=== PATIENT | male | born 1960 | race Caucasian/White ===

== ENCOUNTER 2016-07-19 16:03 | Emergency (ER) | payer SELFPAY ==
[~2016-07-19] VITALS: Ht 172.7 cm; Wt 74.8 kg
--- OUTSIDE RECORDS SUMMARY | 2016-07-19 16:30 | External Medical Summary Rpt ---
Author Author , Organization [employer] Address Unknown Phone Unavailable Care Team Providers Care Computer Help Desk Specialist Name Role Phone ABEL NEGRETE, ABEL NEGRETE Unavailable Unavailable ZACHARY-ISABELLE CARRION, Unavailable Unavailable ZACHARY-ISABELLE CARRION [facility] Unavailable [facility] Unavailable Unavailable [facility] CHANDEL PATRICK, CHANDEL Unavailable Unavailable PATRICK [facility] Unavailable Unavailable PHYSICIAN PRA, [facility] PHYSICIAN PRA [facility] Unavailable Unavailable [facility] DANISHA COPPOLA, DANISHA Unavailable Unavailable [facility] Unavailable Unavailable HOSPITA, [facility] JYOTSNA RHO, JYOTSNA Unavailable Unavailable RHO OSCAR ANN, Unavailable Unavailable OSCAR ANN OSCAR ANN, Unavailable Unavailable OSCAR ANN WARREN ELLIOT, WARREN Unavailable Unavailable [facility] Un[facility] Unavailable [facility], [facility] JENNY CEC, JENNY Unavailable Unavailable CEC FANG NAN, FANG Unavailable Unavailable NAN FANG MITCHELL, FANG Unavailable Unavailable [facility]AN [facility] Un[facility]available [facility] Unavailable Unavailable [facility], [facility] SCALF LEI, SCALF LEI Unavailable Unavailable SCALF LEI, SCALF LEI Unavailable [facility] Purpose Continuity of Care Document - 01-13-2013 through 2016 Problems Code Diagnosis DOS Provider Status M549 DORSALGIA 01-05-2016 [facility] E639 NUTRITIONAL 12-30-2015 [facility] DEFICIENCY [facility]IC UNSPECIFIED H579 UNSPECIFIED 12-30-2015 [facility] DISORDER [facility]IN[facility] OF EYE AND ADNEXA Z09 ENC F/U 12-30-2015 [facility] EXAM AFTR CLINIC CMPL TX OTH THAN MALIG NEOPLSM I10 ESSENTIAL 12-29-2015 [facility] HYPERTENSIO PHYS N R0789 OTHER CHEST 12-29-2015 [facility] PAIN N EMERGENCY PHYS R079 CHEST PAIN 12-29-2015 [facility] Z720 TOBACCO USE 12-29-2015 [facility] H[facility]PITA G4700 INSOMNIA 12-25-2015 [facility] UNSPECIFIED [facility] R5383 OTHER 12-25-2015 [facility] FATIGUE [facility]INIC K529 NONINFECTIV 10-23-2015 [facility] GASTROENTER PHYS ITIS & COLITIS UNS R0602 SHORTNESS 10-23-2015 [facility] [place] [facility] R1110 VOMITING 10-23-2015 [facility] UNSPECIFIED N EMERGENCY PHYS R197 DIARRHEA 10-23-2015 [facility] UNSPECIFIED N EMERGENCY PHYS R031 NONSPECIFIC 09-18-2015 [facility] LOW CLINIC BLOOD-PRESS URE READING R109 UNSPECIFIED 09-18-2015 [facility] ABDOMINAL [facility]IC PAIN R112 NAUSEA WITH 09-18-2015 [facility] VOMITING [facility] UNSPECIFIED Z8619 PERSONAL 09-18-2015 [facility] HISTORY OTH CLINIC INFECTIOUS & PARASITIC DZ Z760 ENCOUNTER 08-26-2015 [facility] FOR ISSUE CLINIC OF REPEAT PRESCRIPTIO N M545 LOW BACK 07-31-2015 [facility] PAIN [facility]INIC [id number] UNSPECIFIED 06-17-2015 [facility] FALL [facility] INITIAL HOLDINGS ENCOUNTER T148 OTHER 06-02-2015 [facility] INJURY OF [facility] UNSPECIFIED HOLDINGS BODY REGION D239 OTHER 02-21-2015 [facility] BENIGN NEOPLASM OF SKIN UNSPECIFIED E8020 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 B182 CHRONIC 02-12-2015 [facility] HE[facility] C PHYSICIAN PRA [id number] ABRASION OF 02-03-2015 [facility] RIGHT [facility]INIC UPPER ARM INITIAL ENCOUNTER K828 OTHER 01-16-2015 [facility] [place] SPEC[facility]IED [facility] DISEASES OF GALLBLADDER 4019 UNSPECIFIED 11-08-2014 [facility] ESSENTIAL [facility] HYPERTENSIO HOLDINGS N 7099 UNSPECIFIED 11-08-2014 [facility] DISORDER [facility] OF HOLDINGS SKIN&SUBCUT ANEOUS TISSUE 9142 HAND NO 11-08-2014 [facility] FINGER [facility] ALONE HOLDINGS BLISTER WITHOUT MENTION INF 7906 OTHER 09-16-2014 [facility] ABNORMAL [facility] BLOOD HOLDINGS CHEMISTRY 23051 INJURY OF 08-14-2014 [facility] FACE AND [facility] NECK OTHER AND UNSPECIFIED 81563 OTHER 08-14-2014 [facility] [place] INJURY OF RADIOLOGY OTHER SITES OF TRUNK 9592 INJURY 08-14-2014 [facility] [place] OTHER&UNSPE RADIOLOGY CIFIED SHOULDER&UP PER ARM 7231 CERVICALGIA 02-14-2013 [facility] 7295 PAIN IN 02-14-2013 [place] [facility] TISSUES OF LIMB 4011 ESSENTIAL 01-18-2013 [facility]CHE[facility] HYPERTENSIO N, BENIGN 4610 ACUTE 01-18-2013 [facility] MIT[facility] MAXILLARY SINUSITIS 36565 OTHER 01-18-2013 [facility] MITCHELL SYMPTOMS INVOLVING HEAD AND NECK Medications Na ND Rx Da Fi Fi Am Da Di Ph RX Ph St me C No te ll ll ou ys ag ar # ys at rm s nt no ma ic us Or Da si cy ia de te s n re d PE 00 12 12 0 59 1 CA 71 HOWARD Ac RM 47 -0 -0 0. RL 78 WV ti ET 25 5- 5- 00 IS 46 LT ve HR 24 20 20 0 LE ON IN [address] YE 1% UG MB S ER LO LY TI M ON IA 00 11 11 0 12 6 CA 71 HU Ac OM 60 -1 -1 00 RL 71 NT ti ET 31 4- 4- .0 IS 40 ER ve HOWARD 58 20 20 00 LE ZI 65 [address] BERRY -Venkat YOUNGBLOOD Y M S C SY RU P AM 65 11 11 0 30 10 CA 71 HU Ac OX 86 -1 -1 0. RL 71 NT ti -C 20 4- 4- 00 IS 38 ER ve LA 50 20 20 0 LE V 22 [address] BERRY 0- UG Y 12 S C 5 MG TA BL ET ME 65 11 11 0 60 30 CA 71 HU Ac LO 86 -1 -1 0. RL 71 NT ti XI 20 4- 4- 00 IS 39 ER ve CA 09 20 20 0 LE M 80 13 [address] BERRY UG Y MG S C TA BL ET 64 03 11 12 30 30 CA 70 AH Ac 67 -0 -0 0. RL 78 ME ti 90 4- 9- 00 IS 02 D ve 94 20 20 0 LE AD 20 [address] Rosa Oneill Immunization Name Date Route CVX Reacti Commen Provid Is Given on t er Refuse d TD ROMAN No VACCIN 2014 PENELOPE E PRSRV FREE 7 YRS OR OLDER FOR IM USE TD ROMAN No VACCIN 2014 PENELOPE E PRSRV FREE 7 YRS OR OLDER FOR IM USE Procedures Procedure [place] [address] [facility] TROPONIN 6 N N QUANTITAT COMMUNTIY COMMUNTIY ALEXIS HOSPITA HOSPITA BLOOD 79035 [facility] COUNT 6 N N COMPLETE COMMUNTIY COMMUNTIY AUTO&AUTO HOSPITA HOSPITA DIFRNTL WBC ECG 44738 [facility] ROUTINE 6 GENARO ANAT ECG EMERGENCY W/LEAST PHYS 12 LDS I&R ONLY GROUND A0425 [facility] MILEAGE 6 JACE MCCORMICK PER CO EMS CO EMS STATUTE MILE RADIOLOGI 46995 [facility] [place] [facility] C 6 RADIOLOGY RHO EXAMINATI ON CHEST SINGLE VIEW FRONTAL AMB A0427 [facility] SERVICE 6 Rosa-JAY JAY Lee-JAY JAY ALS CO EMS CO EMS EMERGENCY TRANSPORT LEVEL 1 COMPREHEN 83637 [facility] SIVE 6 N N METABOLIC COMMUNTIY COMMUNTIY PANEL HOSPITA HOSPITA COMPREHEN 65218 [facility] SIVE 6 [facility]ENN[facility]I [facility]ENN[facility] METABOLIC HOLDINGS HOLDINGS PANEL COLLECTIO 89107 [facility] ROMAN PENELOPE N VENOUS 6 CLINIC BLOOD VENIPUNCT URE BLOOD 35923 [facility] COUNT 6 KENNEDI KENNEDI COMPLETE HOLDINGS HOLDINGS AUTO&AUTO DIFRNTL WBC RADIOLOGI 94802 [facility] [place] [facility] EXAM 6 RADIOLOGY ELLIOT CHEST 2 VIEWS FRONTAL&L ATERAL INJECTION J2550 [facility] SHARMA- 6 [facility]IN[facility] PROMETHAZ INE HCL UP TO 50 MG THERAPEUT 16694 [facility] SHARMA- IC 6 CLINIC SE [place] PROPHYLAC TIC/DX INJECTION SUBQ/IM BLOOD 38805 [facility] COUNT 6 KENNEDI KENNEDI COMPLETE HOLDINGS HOLDINGS AUTO&AUTO DIFRNTL WBC COLLECTIO 63541 [facility] ROMAN PENELOPE N VENOUS 6 CLINIC BLOOD VENIPUNCT URE COMPREHEN 25193 [facility]ADY SIVE 6 KENNEDI KENNEDI METABOLIC HOLDINGS HOLDINGS PANEL COMPREHEN 93145 [facility]Y SIVE 6 KENNEDI KENNEDI METABOLIC HOLDINGS HOLDINGS PANEL COLLECTIO 55737 [facility] ROMAN PENELOPE N VENOUS 6 [place] [address] SCALF LEI SCALF LEI SURG 5 PATHOLOGY GROSS&SOWMYA ROSCOPIC EXAM IM ADM 19716 [facility] NEGRETE PRQ ID 5 CLINIC SUBQ/IM NJXS [address] [place] [address] [facility] VACCINE 5 CLINIC PRSRV FREE 7 [place] [address] [facility] [place] [facility] ABDOMINAL 5 RADIOLOGY RHO REAL TIME W/IMAGE LIMITED CYANOCOBA 29245 [facility] ANTHONY 5 [facility] VITAMIN INC INC B-12 IRON 07383 [facility] BINDING 5 [facility] CAPACITY INC INC COLLECTIO 80820 [facility] N VENOUS 5 MEM [facility]OS[facility] MEM [facility]OS[facility] [place] [address] [facility] FERRITIN 5 [place] [address] [facility] IRON 5 MEM [facility] INC INC INF AGT G0432 [facility] AB DETECT 5 MEM HOS[facility] MEM [facility] EIA TECH INC INC HIV-1&/HI V-2 SCR COMPREHEN 72457 [facility] SIVE 5 [facility] METABOLIC HOLDINGS HOLDINGS PANEL CUL BACT 63336 [facility] XCPT 5 [facility] URINE HOLDINGS HOLDINGS BLOOD/STO OL AEROBIC ISOL COLLECTIO 21206 [facility] ALARCONLER- N VENOUS 5 CLINIC SE [facility] BLOOD VENIPUNCT URE BLOOD 51427 [facility] COUNT 5 [facility] COMPLETE HOLDINGS HOLDINGS AUTO&AUTO DIFRNTL WBC SUSCEPTIB 41320 [facility] LTY STDY 5 [facility] ANTIMICRB HOLDINGS HOLDINGS IAL MICRO/AGA R DILUTJ BLOOD 78468 [facility] COUNT 5 KENNEDI KENNEDI COMPLETE HOLDINGS HOLDINGS AUTO&AUTO DIFRNTL WBC CYANOCOBA 54346 [facility] ANTHONY 5 [facility] VITAMIN HOLDINGS HOLDINGS B-12 LIPID 30494 [facility] PANEL 5 KENN[facility] KENNEDI HOLDINGS HOLDINGS COMPREHEN 91878 LAB [facility] SIVE 5 [facility] [place] [address] [facility] FOLIC 5 [facility]ENN[facility] [place] [address] [facility] CERVICAL 5 RADIOLOGY RHO SPINE W/O CONTRAST MATERIAL CT LUMBAR 00588 [facility] [place] [facility] SPINE 5 RADIOLOGY RHO W/O CONTRAST MATERIAL RADEX 30372 [facility] SHOULDER 5 RADIOLOGY RHO COMPLETE MINIMUM 2 VIEWS INJECTION J1885 OSCAR OSCAR 3 ANN JUAREZ KETOROLAC TROMETHAM INE PER 15 MG THERAPEUT 52765 [facility] OSCAR IC 3 ANN JUAREZ PROPHYLAC TIC/DX INJECTION SUBQ/IM INJECTION J3301 OSCAR OSCAR 3 ANN JUAREZ TRIAMCINO LONE ACETONIDE NOS 10 MG Encounters Encounter Start End Date Code Location Performer Type Date OFFICE 90441 [facility] OUT[facility]EN 6 6 CLINIC T VISIT 15 MINUTES OFFICE 08151 [facility] OUTPATIEN 6 6 CLINIC T VISIT 15 MINUTES [facility] 6 6 N OUTPATIEN COMMUNTIY T HOSPITA EMERGENCY 33877 [facility] 6 6 N DEPARTMEN COMMUNTIY T VISIT HOSPITA HIGH/URGE NT SEVERITY EMERGENCY 79347 [facility] DEPT 6 6 GENARO ANAT VISIT EMERGENCY HIGH PHYS SEVERITY& THREAT FUNCJ OFFICE 73613 [facility] OUTPATIEN 6 6 CLINIC T VISIT 15 MINUTES OFFICE 58146 [facility] NEGRETE OUTPATIEN 6 6 CLINIC T VISIT 15 MINUTES EMERGENCY 74484 [facility] DEPT 6 6 GENARO PATRICK VISIT EMERGENCY HIGH PHYS SEVERITY& THREAT FUNCJ OFFICE 86653 [facility] PIZARRO OUTPATIEN 6 6 CLINIC SE [place] T VISIT 15 MINUTES OFFICE 81663 [facility] NE[facility]TE OUTPATIEN 6 6 CLINIC T VISIT 15 MINUTES OFFICE 68769 [facility] NE[facility]TE OUTPATIEN 6 6 CLINIC T VISIT 15 MINUTES OFFICE 90231 TOMASCHRIS NEGRETE OUTPATIEN 6 6 CLINIC T VISIT 15 MINUTES OFFICE 00818 [facility]RIS NE[facility] OUTPATIEN 6 6 CLINIC T VISIT 15 MINUTES OFFICE 17297 [facility] OUTPATIEN 5 5 REGIONAL CEC T VISIT PHYSICIAN 15 PRA MINUTES OFFICE 81825 [facility] ABEL NEGRETE OUTPATIEN 5 5 CLINIC T VISIT 15 MINUTES [facility] 5 5 [facility] T OFFICE 01686 [facility] OUTPATIEN 5 5 DIGESTIVE CEC T NEW [address] [facility] MY[facility] - 5 5 [facility] OUTPATIEN [facility] T OFFICE 63030 [facility] PIZARRO OUTPATIEN 5 5 CLINIC SE [place] T VISIT 15 MINUTES OFFICE 48703 CELESTINA OSCAR OUTPATIEN 3 3 ANN JUAREZ T VISIT 15 MINUTES OFFICE 44931 [facility] HEADLEY OUTPATIEN 3 3 STEPHEN MITCHELL T VISIT 15 MINUTES
--- OUTSIDE RECORDS SUMMARY | 2016-07-19 16:30 | External Medical Summary Rpt ---
Author Author , Organization [employer] Address Unknown Phone Unavailable Care Team Providers Care Research Microbiologist Name Role Phone ABEL NEGRETE, ABEL NEGRETE Unavailable Unavailable ZACHARY-ISABELLE CARRION, Unavailable Unavailable ZACHARY-ISABELLE CARRION [facility], Un[facility] Unavailable [facility], Unavailable [facility]available [facility] CHANDEL PATRICK, CHANDEL Unavailable Unavailable PATRICK [facility] Unavailable Unavailable PHYSICIAN PRA, [facility] PHYSICIAN PRA [facility], Unavailable Unavailable [facility] DANISHA COPPOLA, DANISHA Unavailable Unavailable [facility] Unavailable Unavailable HOSPITA, [facility] Unavailable [facility]available EMS, [facility] Unavailable Unavailable EMS, [facility] JYOTSNA RHO, JYOTSNA Unavailable Unavailable RHO [...] N EMERGENCY PHYS R079 CHEST PAIN 12-29-2015 [facility] EMS Z720 TOBACCO USE 12-29-2015 [facility] G4700 INSOMNIA 12-25-2015 [facility] UNSPECIFIED [facility]INIC [...] M545 LOW BACK 07-31-2015 [facility] PAIN [facility]INIC [id number] UNSPECIFIED 06-17-2015 [facility] INITIAL HOLDINGS ENCOUNTER T148 OTHER 06-02-2015 [facility] INJURY OF [place]ENNEDI UNSPECIFIED HOLDINGS BODY REGION D239 OTHER 02-21-2015 [facility] BENIGN NEOPLASM OF SKIN UNSPECIFIED E8020 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 B182 CHRONIC 02-12-2015 [facility] HE[facility]IS C PHYSICIAN PRA E84195O ABRASION OF 02-03-2015 [facility] RIGHT [facility]INIC UPPER [...] LAB [facility] ABNORMAL [facility] BLOOD HOLDINGS CHEMISTRY 85940 INJURY OF 08-14-2014 [facility] FACE AND [facility] NECK OTHER AND UNSPECIFIED 78891 OTHER 08-14-2014 [facility] [place] INJURY OF RADIOLOGY OTHER SITES OF TRUNK 9592 INJURY 08-14-2014 [facility] [place] OTHER&UNSPE RADIOLOGY CIFIED SHOULDER&UP PER ARM 7231 CERVICALGIA 02-14-2013 [facility] 7295 PAIN IN 02-14-2013 [facility] TISSUES OF LIMB 4011 ESSENTIAL 01-18-2013 [facility] HYPERTENSIO N, BENIGN 4610 ACUTE 01-18-2013 [facility] MAXILLARY SINUSITIS 44478 OTHER 01-18-2013 [facility]CHE[facility] SYMPTOMS INVOLVING HEAD [...] RM 47 -0 -0 0. RL 78 [place] ti ET 25 5- 5- 00 IS 46 LT ve HR 24 20 20 0 LE ON IN [address] YE 1% UG MB S ER LO LY TI M ON MN 00 11 11 0 12 6 CA [...] DOS [place] [address] [facility] TROPONIN 6 N N QUANTITAT COMMUNTIY COMMUNTIY ALEXIS HOSPITA HOSPITA BLOOD 60130 [facility] COUNT 6 N N COMPLETE COMMUNTIY COMMUNTIY AUTO&AUTO HOSPITA HOSPITA DIFRNTL WBC ECG 18921 [facility] ROUTINE 6 GENARO ANAT ECG EMERGENCY W/LEAST PHYS 12 LDS I&R ONLY GROUND A0425 [facility] MILEAGE 6 JACE MCCORMICK PER CO EMS CO EMS STATUTE MILE RADIOLOGI 87905 [facility] C 6 RADIOLOGY RHO EXAMINATI ON CHEST SINGLE VIEW FRONTAL AMB A0427 [facility] SERVICE 6 Rosa-JAY JAY Lee-JAY JAY ALS CO EMS CO EMS EMERGENCY TRANSPORT LEVEL 1 COMPREHEN 17553 [facility] SIVE 6 N N METABOLIC COMMUNTIY COMMUNTIY PANEL HOSPITA HOSPITA COMPREHEN 80744 [facility] SIVE 6 [facility]ENN[facility] METABOLIC HOLDINGS HOLDINGS PANEL COLLECTIO 99423 [facility] ROMAN PENELOPE N VENOUS 6 CLINIC BLOOD VENIPUNCT URE BLOOD 36355 [facility] COUNT 6 [facility]ENN[facility] [place]ENN[facility] COMPLETE HOLDINGS HOLDINGS AUTO&AUTO DIFRNTL WBC RADIOLOGI 02194 [facility] [place] [facility] EXAM 6 RADIOLOGY ELLIOT CHEST 2 VIEWS FRONTAL&L ATERAL INJECTION J2550 [facility] SHARMA- 6 CLINIC SE [facility] PROMETHAZ INE HCL UP TO 50 MG THERAPEUT 45321 [facility] SHARMA- IC 6 CLINIC SE [place] PROPHYLAC TIC/DX INJECTION SUBQ/IM BLOOD 29853 [facility] COUNT 6 KENNEDI KENNEDI COMPLETE HOLDINGS HOLDINGS AUTO&AUTO DIFRNTL WBC COLLECTIO 29011 [facility] ROMAN PENELOPE N VENOUS 6 CLINIC BLOOD VENIPUNCT URE COMPREHEN 29527 [facility] SIVE 6 KENNEDI [facility] METABOLIC HOLDINGS HOLDINGS PANEL COMPREHEN 16541 [facility] SIVE 6 KENNEDI [facility]ENN[facility] METABOLIC HOLDINGS HOLDINGS PANEL COLLECTIO 81782 [facility] ROMAN PENELOPE N VENOUS 6 [place] [address] [facility] SCALF LEI SURG 5 PATHOLOGY GROSS&SOWMYA ROSCOPIC EXAM IM ADM 26742 [facility] NEGRETE PRQ ID 5 CLINIC SUBQ/IM NJXS [address] [place] [address] [facility] VACCINE 5 CLINIC PRSRV FREE 7 [place] [address] [facility] [place] [facility] ABDOMINAL 5 RADIOLOGY RHO REAL TIME W/IMAGE LIMITED CYANOCOBA 21587 [facility] ANTHONY 5 [facility]OS[facility] VITAMIN INC INC B-12 IRON 45835 [facility] BINDING 5 [facility] H[facility]OS[facility] CAPACITY INC INC COLLECTIO 76145 [facility] BRUNNER N VENOUS 5 MEM [facility] MEM HOS[facility] [place] [address] [facility] FERRITIN 5 [place] [address] [facility] IRON 5 MEM HOS[facility]OS[facility] INC INC INF AGT G0432 [facility] BRUNNER AB DETECT 5 MEM HOSP MEM HOSP EIA TECH INC INC HIV-1&/HI V-2 SCR COMPREHEN 93072 [facility] SIVE 5 [facility] METABOLIC HOLDINGS HOLDINGS PANEL CUL BACT 35237 [facility]Y XCPT 5 [facility] URINE HOLDINGS HOLDINGS BLOOD/STO OL AEROBIC ISOL COLLECTIO 48109 [facility] ALARCONLER- N VENOUS 5 CLINIC SE [place] BLOOD VENIPUNCT URE BLOOD 00118 [facility] COUNT 5 [facility] COMPLETE HOLDINGS HOLDINGS AUTO&AUTO DIFRNTL WBC SUSCEPTIB 01540 [facility] LTY STDY 5 [facility] ANTIMICRB HOLDINGS HOLDINGS IAL MICRO/AGA R DILUTJ BLOOD 86586 [facility] COUNT 5 KENN[facility] KENNEDI COMPLETE HOLDINGS HOLDINGS AUTO&AUTO DIFRNTL WBC CYANOCOBA 72230 [facility] ANTHONY 5 [facility] VITAMIN HOLDINGS HOLDINGS B-12 LIPID 89733 [facility] PANEL 5 KENNEDI KENNEDI HOLDINGS HOLDINGS COMPREHEN 83505 [facility] SIVE 5 [facility] [place] [address] LAB [facility] FOLIC 5 KENNEDI [place] [address] [facility] CERVICAL 5 RADIOLOGY RHO SPINE W/O CONTRAST MATERIAL CT LUMBAR 76656 [facility] SPINE 5 RADIOLOGY RHO W/O CONTRAST MATERIAL RADEX 15707 [facility] SHOULDER 5 RADIOLOGY RHO COMPLETE MINIMUM 2 VIEWS INJECTION J1885 OSCAR OSCAR 3 ANN JUAREZ KETOROLAC TROMETHAM INE PER 15 MG THERAPEUT 36117 OSCAR OSCAR IC 3 ANN JUAREZ PROPHYLAC TIC/DX INJECTION SUBQ/IM INJECTION J3301 OSACR OSCAR 3 ANN JUAREZ TRIAMCINO LONE ACETONIDE NOS 10 MG Encounters Encounter Start End Date Code Location Performer Type Date OFFICE 47242 [facility] OUTPATIEN 6 6 CLINIC T VISIT 15 MINUTES OFFICE 15982 [facility] NE[facility]TE OUTPATIEN 6 6 CLINIC T VISIT 15 MINUTES [facility] 6 6 N OUTPATIEN COMMUNTIY T HOSPITA EMERGENCY 79941 [facility] 6 6 N DEPARTMEN COMMUNTIY T VISIT HOSPITA HIGH/URGE NT SEVERITY EMERGENCY 56857 [facility] DEPT 6 6 GENARO ANAT VISIT EMERGENCY HIGH PHYS SEVERITY& THREAT FUNCJ OFFICE 32851 [facility] OUTPATIEN 6 6 CLINIC T VISIT 15 MINUTES OFFICE 76485 [facility] NE[facility]TE OUTPATIEN 6 6 CLINIC T VISIT 15 MINUTES EMERGENCY [address] [facility] DEPT 6 6 GENARO PATRICK VISIT EMERGENCY HIGH PHYS SEVERITY& THREAT FUNCJ OFFICE 66303 [facility] PIZARRO OUTPATIEN 6 6 CLINIC SE [place] T VISIT 15 MINUTES OFFICE 31930 [facility]TE OUTPATIEN 6 6 CLINIC T VISIT 15 MINUTES OFFICE 10126 [facility] NE[facility]TE OUTPATIEN 6 6 CLINIC T VISIT 15 MINUTES OFFICE 56825 [facility]RIS NEGRETE OUTPATIEN 6 6 CLINIC T VISIT 15 MINUTES OFFICE 08265 [facility] NE[facility]TE OUTPATIEN 6 6 CLINIC T VISIT 15 MINUTES OFFICE 64306 [facility] OUTPATIEN 5 5 REGIONAL CEC T VISIT PHYSICIAN 15 PRA MINUTES OFFICE 83825 [facility] ABEL NEGRETE OUTPATIEN 5 5 CLINIC T VISIT 15 MINUTES [facility] 5 5 [facility] T OFFICE 29349 [facility] OUTPATIEN 5 5 DIGESTIVE CEC T NEW 45 CARE [facility] MYESHA - 5 5 [facility] OUTPATIEN [facility] T OFFICE 45218 [facility] PIZARRO OUTPATIEN 5 5 CLINIC SE [place] T VISIT 15 MINUTES OFFICE 20957 CELESTINA OSCAR OUTPATIEN 3 3 ANN JUAREZ T VISIT 15 MINUTES OFFICE 39406 [facility] OUTPATIEN 3 3 STEPHEN MITCHELL T VISIT 15 MINUTES
--- OUTSIDE RECORDS SUMMARY | 2016-07-19 16:31 | External Medical Summary Rpt ---
Author Author , Organization [employer] Address Unknown Phone Unavailable Care Team Providers Care Station Baggage Agent Name Role Phone ABEL NEGRETE, ABEL NEGRETE Unavailable Unavailable TAVIA CARRION, Unavailable Unavailable TAVIA CARRION [facility], Unavailable Unavailable [facility], Unavailable Unavailable [facility] CHANDEL PATRICK, CHANDEL Unavailable Unavailable PATRICK [facility] Unavailable Unavailable PHYSICIAN PRA, [facility] PHYSICIAN PRA [facility], Unavailable Unavailable [facility] DANISHA COPPOLA, DANISHA Unavailable Unavailable [facility] Unavailable Unavailable HOSPITA, [facility] Unavailable Unavailable EMS, [facility] Unavailable Unavailable EMS, [facility] JYOTSNA RHO, JYOTSNA Unavailable Unavailable RHO CELESTINA JUAREZ, Unavailable Unavailable OSCAR ANN OSCAR ANN, Unavailable Unavailable OSCAR ANN WARREN ELLIOT, WARREN Unavailable Unavailable [facility] Unavailable Unavailable [facility], [facility] JENNY CEC, JENNY Unavailable Unavailable CEC FANG NAN, FANG Unavailable Unavailable NAN FANG NAN, FANG Unavailable Unavailable [facility] Un[facility]available [facility] Unavailable Unavailable [facility], [facility] SCALF LEI, SCALF LEI Unavailable Unavailable SCALF LEI, SCALF LEI Unavailable Unavailable [facility] Unavailable Unavailable EMERGENCY PHYS, [facility] Purpose Continuity of Care Document [...] N EMERGENCY PHYS R079 CHEST PAIN 12-29-2015 [place]- UNSPECIFIED [facility] EMS Z720 TOBACCO USE 12-29-2015 [facility] G4700 INSOMNIA 12-25-2015 [facility] UNSPECIFIED CLINIC [...] CLINIC UNSPECIFIED Z8619 PERSONAL 09-18-2015 [facility] HISTORY OT CLINIC INFECTIOUS & PARASITIC DZ Z760 ENCOUNTER 08-26-2015 [facility] FOR ISSUE CLINIC OF REPEAT PRESCRIPTIO N M545 LOW BACK 07-31-2015 [facility] PAIN [facility]INIC T23JEOO UNSPECIFIED 06-17-2015 [facility] F[facility] INITIAL HOLDINGS ENCOUNTER T148 OTHER 06-02-2015 [facility] INJURY OF [place] UNSPECIFIED HOLDINGS BODY REGION D239 OTHER 02-21-2015 [facility] BENIGN NEOPLASM OF SKIN UNSPECIFIED 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 B182 CHRONIC 02-12-2015 [facility] HEPATITIS C PHYSICIAN PRA [id number] ABRASION OF 02-03-2015 [facility] RIGHT CLINIC UPPER [...] [facility] ABNORMAL [facility] BLOOD HOLDINGS CHEMISTRY 69054 INJURY OF 08-14-2014 [facility] [place] [facility]ACE [facility] NECK OTHER AND UNSPECIFIED 84154 OTHER 08-14-2014 [facility] [place] INJURY OF RADIOLOGY OTHER SITES OF TRUNK 9592 INJURY 08-14-2014 [facility] [place] OTHER&UNSPE RADIOLOGY CIFIED SHOULDER&UP PER ARM 7231 CERVICALGIA 02-14-2013 CELESTINA JUAREZ 7295 PAIN IN 02-14-2013 JULIAETTA SOFT ANN TISSUES OF LIMB 4011 ESSENTIAL 01-18-2013 FANG MITCHELL HYPERTENSIO N, BENIGN 4610 ACUTE 01-18-2013 FANG MITCHELL MAXILLARY SINUSITIS 83125 OTHER 01-18-2013 FANG MITCHELL SYMPTOMS INVOLVING HEAD [...] RM 47 -0 -0 0. RL 78 TX ti ET 25 5- 5- 00 IS 46 LT ve HR 24 20 20 0 LE ON IN [address] YE 1% UG MB S ER LO LY TI M ON UT 00 11 11 0 12 6 CA 71 HU Ac OM 60 -1 -1 00 RL 71 NT ti ET 31 4- 4- .0 IS 40 ER ve HOWARD 58 20 20 00 LE ZI 65 [address] BERRY -D UG Y M S C SY RU P [...] 20 [address] Rosa YOUNGBLOOD S Immunization Name Date Route CVX Reacti Commen Provid Is Given on t er Refuse d TD ROMAN No VACCIN 2014 PENELOPE E PRSRV FREE 7 YRS OR OLDER FOR IM USE TD ROMAN No VACCIN 2014 PENELOPE E PRSRV FREE 7 YRS OR OLDER FOR IM USE Procedures Procedure DOS Code Location Performer Comment ECG 17554 [facility] ROUTINE 6 GENARO ANAT ECG EMERGENCY W/LEAST PHYS 12 LDS I&[place] [address] [facility] TROPONIN 6 N N QUANTITAT COMMUNTIY COMMUNTIY [facility] HOSPITA RADIOLOGI 94891 [facility] C 6 RADIOLOGY RHO EXAMINATI ON CHEST SINGLE VIEW FRONTAL AMB A0427 [facility] SERVICE 6 N-JAY JAY N-JAY JAY ALS CO EMS CO EMS EMERGENCY TRANSPORT LEVEL 1 BLOOD 97561 [facility] COUNT 6 N N COMPLETE COMMUNTIY COMMUNTIY AUTO&AUTO HOSPITA HOSPITA DIFRNTL WBC GROUND A0425 [facility] MILEAGE 6 N-JAY JAY N-JAY JAY PER CO EMS CO EMS STATUTE MILE COMPREHEN 43524 [facility] SIVE 6 N N METABOLIC COMMUNTIY COMMUNTIY PANEL HOSPITA HOSPITA BLOOD 82532 [facility] COUNT 6 [place] COMPLETE HOLDINGS HOLDINGS AUTO&AUTO DIFRNTL WBC COMPREHEN 02548 [facility] SIVE 6 [facility] METABOLIC HOLDINGS HOLDINGS PANEL COLLECTIO 94131 [facility] ROMAN PENELOPE N VENOUS 6 CLINIC BLOOD VENIPUNCT URE RADIOLOGI 77900 [facility] EXAM 6 RADIOLOGY ELLIOT CHEST 2 VIEWS FRONTAL&L ATERAL THERAPEUT 94995 [facility]- IC 6 [facility] PROPHYLAC TIC/DX INJECTION SUBQ/IM INJECTION J2550 [facility]- 6 [facility] PROMETHAZ INE HCL UP TO 50 MG COLLECTIO 47529 [facility] ROMAN PENELOPE N VENOUS 6 CLINIC BLOOD VENIPUNCT URE BLOOD 04479 [facility] COUNT 6 [place] COMPLETE HOLDINGS HOLDINGS AUTO&AUTO DIFRNTL WBC COMPREHEN 89567 [facility] SIVE 6 [place] [place] METABOLIC HOLDINGS HOLDINGS PANEL COMPREHEN 78880 [facility] SIVE 6 [place] [place] METABOLIC HOLDINGS HOLDINGS PANEL COLLECTIO 02537 [facility] ROMAN PENELOPE N VENOUS 6 [place] [address] [facility] SCALF LEI SURG 5 PATHOLOGY GROSS&SOWMYA ROSCOPIC EXAM IM ADM 90436 [facility] PRQ ID 5 CLINIC SUBQ/IM NJXS [address] [place] [address] [facility] VACCINE 5 CLINIC PRSRV FREE 7 [place] [address] [facility] [place] [facility] ABDOMINAL 5 RADIOLOGY RHO REAL TIME W/[place] [address] [facility] IRON 5 [facility] INC INF AGT G0432 [facility] AB DETECT 5 [facility] EIA TECH INC INC HIV-1&/HI V-2 SCR CYANOCOBA 51753 [facility] ANTHONY 5 [facility] VITAMIN INC INC B-12 IRON 03422 [facility] BINDING 5 [facility] [place] [address] [facility] FERRITIN 5 [facility] INC INC COLLECTIO 05507 [facility] N VENOUS 5 [facility] BLOOD INC INC VENIPUNCT URE BLOOD 81220 [facility] COUNT 5 [facility] COMPLETE HOLDINGS HOLDINGS AUTO&AUTO DIFRNTL WBC CUL BACT 78755 [facility] XCPT 5 [facility] URINE HOLDINGS HOLDINGS BLOOD/STO OL AEROBIC ISOL SUSCEPTIB 46874 [facility] LTY STDY 5 [facility] ANTIMICRB HOLDINGS HOLDINGS IAL MICRO/AGA R DILUTJ COLLECTIO 09597 [facility] GARO N VENOUS 5 CLINIC [facility] [place] BLOOD VENIPUNCT URE COMPREHEN 49258 [facility] SIVE 5 [facility] METABOLIC [place] [address] [facility] FOLIC 5 [facility] ACID HOLDINGS HOLDINGS SERUM COMPREHEN 77127 LAB [facility] SIVE 5 [facility] METABOLIC HOLDINGS HOLDINGS PANEL CYANOCOBA 51888 [facility] ANTHONY 5 [facility] VITAMIN HOLDINGS HOLDINGS B-12 BLOOD 41561 [facility] COUNT 5 [facility] COMPLETE HOLDINGS HOLDINGS AUTO&AUTO DIFRNTL WBC LIPID 74736 [facility] PANEL 5 [facility] HOLDINGS HOLDINGS CT LUMBAR 70371 [facility] [place] [facility] SPINE 5 RADIOLOGY RHO W/O CONTRAST MATERIAL RADEX 45713 [facility] [place] [facility] SHOULDER 5 RADIOLOGY RHO COMPLETE MINIM[address] [place] [address] [facility] [place] [facility] CERVICAL 5 RADIOLOGY RHO SPINE W/O CONTRAST MATERIAL INJECTION J3301 OSCAR OSCAR 3 ANN JUAREZ TRIAMCINO LONE ACETONIDE NOS 10 MG INJECTION J1885 OSCAR OSCAR 3 ANN JUAREZ KETOROLAC TROMETHAM INE PER 15 MG THERAPEUT 76135 OSCAR OSCAR IC 3 ANN JUAREZ PROPHYLAC TIC/DX INJECTION SUBQ/IM Encounters Encounter Start End Date Code Location Performer Type Date OFFICE 60419 [facility] OUT[facility]IEN 6 6 CLINIC T VISIT 15 MINUTES OFFICE 65073 [facility] OUTPATIEN 6 6 CLINIC T VISIT 15 MINUTES EMERGENCY 65811 [facility] 6 6 N DEPARTMEN COMMUNTIY T VISIT HOSPITA HIGH/URGE NT SEVERITY [facility] - 6 6 N OUTPATIEN COMMUNTIY T HOSPITA EMERGENCY 80272 [facility] DEPT 6 6 GENARO ANAT VISIT EMERGENCY HIGH PHYS SEVERITY& THREAT FUNCJ OFFICE 21649 [facility] OUTPATIEN 6 6 CLINIC T VISIT 15 MINUTES OFFICE 56491 [facility] OUTPATIEN 6 6 CLINIC T VISIT 15 MINUTES EMERGENCY 53953 [facility] DEPT 6 6 GENARO PATRICK VISIT EMERGENCY HIGH PHYS SEVERITY& THREAT FUNCJ OFFICE 07170 [facility] PIZARRO OUTPATIEN 6 6 CLINIC SE [place] T VISIT 15 MINUTES OFFICE 34694 [facility] OUTPATIEN 6 6 CLINIC T VISIT 15 MINUTES OFFICE 38982 [facility] OUTPATIEN 6 6 CLINIC T VISIT 15 MINUTES OFFICE 86837 [facility] OUTPATIEN 6 6 CLINIC T VISIT 15 MINUTES OFFICE 47891 [facility] OUTPATIEN 6 6 CLINIC T VISIT 15 MINUTES OFFICE 40542 [facility] OUT[facility]IEN 5 5 REGIONAL CEC T VISIT PHYSICIAN 15 PRA MINUTES OFFICE 56682 TOMASCHRIS NEGRE[facility] OUTPATIEN 5 5 CLINIC T VISIT 15 MINUTES [facility] - 5 5 [facility] T OFFICE 24761 [facility] OUTPATIEN 5 5 DIGESTIVE CEC T NEW 45 CARE [facility] - 5 5 [facility] OUTPATIEN [facility] T OFFICE 91474 [facility] PIZARRO OUTPATIEN 5 5 CLINIC SE [place] T VISIT 15 MINUTES OFFICE 31059 CELESTINA OSCAR OUTPATIEN 3 3 ANN JUAREZ T VISIT 15 MINUTES OFFICE 73253 [facility] HEADLEY OUTPATIEN 3 3 STEPHEN MITCHELL T VISIT 15 MINUTES
--- OUTSIDE RECORDS SUMMARY | 2016-07-19 16:31 | External Medical Summary Rpt ---
Author Author , Organization [employer] Address Unknown Phone Unavailable Care Team Providers Care Strategy Specialist Name Role Phone ABEL NEGRETE, ABEL NEGRETE Unavailable Unavailable TAVIA CARRION, Unavailable Unavailable TAVIA CARRION [facility], Unavailable Unavailable [facility], Unavailable Unavailable [facility] CHANDEL PATRICK, CHANDEL Unavailable Unavailable PATRICK [facility] Unavailable Unavailable PHYSICIAN PRA, [facility] PHYSICIAN PRA [facility], Unavailable Unavailable [facility] DANISHA COPPOLA, DANISHA Unavailable Unavailable [facility] Unavailable Unavailable HOSPITA, [facility] Unavailable Unavailable EMS, [facility] Unavailable Unavailable EMS, [facility] JYOTSNA RHO, JYOTSNA Unavailable Unavailable [...] Unavailable SCALF LEI, SCALF LEI Unavailable Unavailable [facility] Unavailable Unavailable EMERGENCY PHYS, [facility] Purpose Continuity of Care Document [...] N EMERGENCY PHYS R079 CHEST PAIN 12-29-2015 [place]- UNSPECIFIED [facility] EMS Z720 TOBACCO USE 12-29-2015 [facility] G4700 INSOMNIA 12-25-2015 [facility] UNSPECIFIED CLINIC [...] M545 LOW BACK 07-31-2015 [facility] PAIN [facility]INIC [id number] UNSPECIFIED 06-17-2015 [facility] INITIAL HOLDINGS ENCOUNTER T148 OTHER 06-02-2015 [facility] INJURY OF [place] UNSPECIFIED HOLDINGS BODY REGION D239 OTHER 02-21-2015 [facility] BENIGN NEOPLASM OF SKIN UNSPECIFIED E8020 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 B182 CHRONIC 02-12-2015 [facility] HEPATITIS C PHYSICIAN PRA [id number] ABRASION OF 02-03-2015 [facility] RIGHT CLINIC UPPER [...] [facility] ABNORMAL [place] BLOOD HOLDINGS CHEMISTRY 68662 INJURY OF 08-14-2014 [facility] [place] [facility] NECK OTHER AND UNSPECIFIED 06870 OTHER 08-14-2014 [facility] [place] INJURY OF RADIOLOGY OTHER SITES OF TRUNK 9592 INJURY 08-14-2014 [facility] [place] OTHER&UNSPE RADIOLOGY CIFIED SHOULDER&UP PER ARM 7231 CERVICALGIA 02-14-2013 CELESTINA JUAREZ 7295 PAIN IN 02-14-2013 [facility] SOFT ANN TISSUES OF LIMB 4011 ESSENTIAL 01-18-2013 FANG MITCHELL HYPERTENSIO N, BENIGN 4610 ACUTE 01-18-2013 FANG MITCHELL MAXILLARY SINUSITIS 36960 OTHER 01-18-2013 FANG MITCHELL SYMPTOMS INVOLVING HEAD [...] RM 47 -0 -0 0. RL 78 OH ti ET 25 5- 5- 00 IS 46 LT ve HR 24 20 20 0 LE ON IN [address] YE 1% UG MB S ER LO LY TI M ON [place] 00 11 11 0 12 6 CA [...] Procedure DOS Code Location Performer Comment ECG 03132 [facility] ROUTINE 6 GENARO ANAT ECG EMERGENCY W/LEAST PHYS 12 LDS I&[place] [address] [facility] TROPONIN 6 N N QUANTITAT COMMUNTIY COMMUNTIY [facility] HOSPITA RADIOLOGI 86174 [facility] [place] [facility] C 6 RADIOLOGY RHO EXAMINATI ON CHEST SINGLE VIEW FRONTAL AMB A0427 [facility] SERVICE 6 N-JAY JAY N-JAY JAY ALS CO EMS CO EMS EMERGENCY TRANSPORT LEVEL 1 BLOOD 24087 [facility] COUNT 6 N N COMPLETE COMMUNTIY COMMUNTIY AUTO&AUTO HOSPITA HOSPITA DIFRNTL WBC GROUND A0425 [facility] MILEAGE 6 N-JAY JAY N-JAY JAY PER CO EMS CO EMS STATUTE MILE COMPREHEN 72333 [facility] SIVE 6 N N METABOLIC COMMUNTIY COMMUNTIY PANEL HOSPITA HOSPITA BLOOD 63078 [facility] COUNT 6 [place] COMPLETE HOLDINGS HOLDINGS AUTO&AUTO DIFRNTL WBC COMPREHEN 09665 [facility] SIVE 6 [facility] [place] METABOLIC HOLDINGS HOLDINGS PANEL COLLECTIO 26408 [facility] ROMAN PENELOPE N VENOUS 6 CLINIC BLOOD VENIPUNCT URE RADIOLOGI 65030 [facility] EXAM 6 RADIOLOGY ELLIOT CHEST 2 VIEWS FRONTAL&L ATERAL THERAPEUT 46528 [facility]- IC 6 [facility]IN[facility] [place] PROPHYLAC TIC/DX INJECTION SUBQ/IM INJECTION J2550 [facility]- 6 [facility]IN[facility] [place] PROMETHAZ INE HCL UP TO 50 MG COLLECTIO 35934 [facility] ROMAN PENELOPE N VENOUS 6 CLINIC BLOOD VENIPUNCT URE BLOOD 83541 [facility] COUNT 6 [place] COMPLETE HOLDINGS HOLDINGS AUTO&AUTO DIFRNTL WBC COMPREHEN 66921 [facility] SIVE 6 [place] [place] METABOLIC HOLDINGS HOLDINGS PANEL COMPREHEN 81937 [facility] SIVE 6 [facility] [place] METABOLIC HOLDINGS HOLDINGS PANEL COLLECTIO 33980 [facility] ROMAN PENELOPE N VENOUS 6 [place] [address] [facility] SCALF LEI SURG 5 PATHOLOGY GROSS&SOWMYA ROSCOPIC EXAM IM ADM 46613 [facility] PRQ ID 5 CLINIC SUBQ/IM NJXS [address] [place] [address] [facility] VACCINE 5 CLINIC PRSRV FREE 7 [place] [address] [facility] [place] [facility] ABDOMINAL 5 RADIOLOGY RHO REAL TIME W/[place] [address] [facility] IRON 5 [facility] INC INC INF AGT G0432 [facility] BRUNNER AB DETECT 5 [facility] EIA TECH INC INC HIV-1&/HI V-2 SCR CYANOCOBA 47546 [facility] ANTHONY 5 [facility] VITAMIN INC INC B-12 IRON 59966 [facility]HA BINDING 5 [facility] [place] [address] [facility] FERRITIN 5 [facility] INC INC COLLECTIO 30242 [facility] BRUNNER N VENOUS 5 [facility] BLOOD INC INC VENIPUNCT URE BLOOD 44433 [facility] COUNT [facility] COMPLETE HOLDINGS HOLDINGS AUTO&AUTO DIFRNTL WBC CUL BACT 83790 [facility] XCPT [facility] URINE HOLDINGS HOLDINGS BLOOD/STO OL AEROBIC ISOL SUSCEPTIB 77046 [facility] LTY STDY [facility] ANTIMICRB HOLDINGS HOLDINGS IAL MICRO/AGA R DILUTJ COLLECTIO 56984 [facility] GARO N VENOUS 5 CLINIC [facility] [place] BLOOD VENIPUNCT URE COMPREHEN 92461 [facility] SIVE [facility] METABOLIC [place] [address] [facility] FOLIC [facility] ACID HOLDINGS HOLDINGS SERUM COMPREHEN 90219 [facility] SIVE 5 [facility] METABOLIC HOLDINGS HOLDINGS PANEL CYANOCOBA 69743 [facility] ANTHONY [facility] VITAMIN HOLDINGS HOLDINGS B-12 BLOOD 95151 [facility] COUNT [facility] COMPLETE HOLDINGS HOLDINGS AUTO&AUTO DIFRNTL WBC LIPID 15580 [facility] PANEL 5 [facility] KENN[facility] LUMBAR 50001 [facility] SPINE 5 RADIOLOGY RHO W/O CONTRAST MATERIAL RADEX 51182 [facility] SHOULDER 5 RADIOLOGY RHO COMPLE[place] MINIM[place] [address] [place] [address] [facility] CERVICAL 5 RADIOLOGY RHO SPINE W/O CONTRAST MATERIAL INJECTION J3301 OSCAR OSCAR 3 ANN JUAREZ TRIAMCINO LONE ACETONIDE NOS 10 MG INJECTION J1885 OSCAR OSCAR 3 ANN JUAREZ KETOROLAC TROMETHAM INE PER 15 MG THERAPEUT 70318 OSCAR OSCAR IC 3 ANN JUAREZ PROPHYLAC TIC/DX INJECTION SUBQ/IM Encounters Encounter Start End Date Code Location Performer Type Date OFFICE 46741 [facility] OUTPATIEN 6 6 CLINIC T VISIT 15 MINUTES OFFICE 18122 [facility] OUTPATIEN 6 6 CLINIC T VISIT 15 MINUTES EMERGENCY 58103 [facility] 6 6 N DEPARTMEN COMMUNTIY T VISIT HOSPITA HIGH/URGE NT SEVERITY [facility] - 6 6 N OUTPATIEN COMMUNTIY T HOSPITA EMERGENCY 39690 [facility] DEPT 6 6 GENARO ANAT VISIT EMERGENCY HIGH PHYS SEVERITY& THREAT FUNCJ OFFICE 01849 [facility] OUT[facility]IEN 6 6 CLINIC T VISIT 15 MINUTES OFFICE 32684 [facility] OUTPATIEN 6 6 CLINIC T VISIT 15 MINUTES EMERGENCY 31205 [facility] DEPT 6 6 GENARO PATRICK VISIT EMERGENCY HIGH PHYS SEVERITY& THREAT FUNCJ OFFICE 73250 [facility] PIZARRO OUTPATIEN 6 6 CLINIC [facility] [place] T VISIT 15 MINUTES OFFICE 71342 [facility] OUTPATIEN 6 6 CLINIC T VISIT 15 MINUTES OFFICE 81166 [facility] OUTPATIEN 6 6 CLINIC T VISIT 15 MINUTES OFFICE 19944 [facility] OUTPATIEN 6 6 CLINIC T VISIT 15 MINUTES OFFICE 74689 [facility] OUTPATIEN 6 6 CLINIC T VISIT 15 MINUTES OFFICE 81461 [facility] OUT[facility]IEN 5 5 REGIONAL CEC T VISIT PHYSICIAN 15 PRA MINUTES OFFICE 14028 TOMASCHRIS [facility]GRETE OUTPATIEN 5 5 CLINIC T VISIT 15 MINUTES [facility] - 5 5 [facility] T OFFICE 48119 [facility] OUTPATIEN 5 5 DIGESTIVE CEC T NEW 45 CARE [facility] MYESHA - 5 5 [facility] OUTPATIEN [facility] T OFFICE 77597 [facility] PIZARRO OUTPATIEN 5 5 CLINIC SE [place] T VISIT 15 MINUTES OFFICE 83977 CELESTINA OSCAR OUTPATIEN 3 3 ANN JUAREZ T VISIT 15 MINUTES OFFICE 96400 [facility] 3 3 STEPHEN MITCHELL T VISIT 15 MINUTES
--- OUTSIDE RECORDS SUMMARY | 2016-07-19 16:32 | External Medical Summary Rpt ---
Demographics Preferred Language Arabic Marital Status Unknown Alevism Affiliation Unknown Race Unknown Ethnic Group Unknown Author Author , Organization [employer] Address Unknown Phone Unavailable Purpose Continuity of Care Document - through 2016 Immunization No patient found.
--- OUTSIDE RECORDS SUMMARY | 2016-07-19 16:32 | External Medical Summary Rpt ---
Author Author ELEANOR Allison, [employer] Address Unknown Phone Unavailable
--- OUTSIDE RECORDS SUMMARY | 2016-07-19 16:32 | External Medical Summary Rpt ---
Demographics Preferred Language Lao Marital Status Unknown Mormonism Affiliation Unknown Race Unknown Ethnic Group Unknown Author Author , Organization [employer] Address Unknown Phone Unavailable Purpose Continuity of Care Document - through 2016 Immunization No patient found.
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
[2016-07-19 17:16] VITALS: BP 187/74
--- NOTE | 2016-07-19 20:12 | RADIOLOGY REPORT PS360 ---
[id number] VIEWS Ordering Physician: Aleksey Reyes MD Patient Age: 56 years: Male HISTORY: FALLright shoulder pain fell off porch TECHNIQUE: 3 views right shoulder FINDINGS Oblique Fracture of the distal right clavicle.. This extends from the inferior aspect of the distal head of the clavicle, then passing obliquely to the distal shaft. Only mild distraction along fracture line. Suspect Minor comminution I believe at the superior cortex of the distal clavicle fracture.. Mild one cortical width superior displacement distal fracture fragment. Acromion appears intact. AC joint is not widened. \Coracoclavicular relationships appears satisfactory. Glenohumeral joint intact humeral head appears satisfactory although question mild subtle subchondral cystic, degenerative cystic changes at the humeral head on the AP internal rotation view. Right upper lung and apex and right upper ribs intact. Incidental at generous calcification right neck likely involving carotid bifurcation IMPRESSION: --------- Fracture distal clavicle . AC joint intact Other observations in text . Incidental note generous calcification towards the right carotid bifurcation
--- NOTE | 2016-07-19 20:17 | RADIOLOGY REPORT PS360 ---
[id number] VIEWS Ordering Physician: Aleksey Reyes MD Patient Age: 56 years: Male HISTORY: FALLfall with rib pain TECHNIQUE: Oblique views right ribs with AP chest FINDINGS Subtle acute fracture involving the lateral right fifth rib and sixth rib and likely seventh rib as seen on some of the oblique views.. No displaced rib fractures. No pneumothorax. No pleural effusion. No pleural fusion. Underlying lung appears satisfactory with no focal lesions or edema. Right and left lung is clear. Heart, aria and mediastinal structures unremarkable. IMPRESSION: ------ Subtle Fracture of the right fifth, sixth and likely seventh ribs . Lungs well expanded & clear . No pneumothorax no pleural effusion Please fax to ER (no impression from ER )
== END 2016-07-19 17:22 | disposition home or self-care (01) ==
LOC: ER 16:03
DX: S20.211A Contusion of right front wall of thorax, initial encounter (principal); S46.911A Strain of unspecified muscle, fascia and tendon at shoulder and upper arm level, right arm, initial encounter; Z72.0 Tobacco use; W01.0XXA Fall on same level from slipping, tripping and stumbling without subsequent striking against object, initial encounter